=== PATIENT | female | born 1940 | race American Indian/Alaskan Native ===

== ENCOUNTER 2016-12-01 09:05 | Inpatient (IN) | payer MEDICARE ==
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
[2016-12-01 10:01] LABS: URINE BILIRUBIN NEGATIVE (NEGATIVE); URINE BLOOD NEGATIVE (NEGATIVE); URINE GLUCOSE (UA) NEGATIVE (NEGATIVE); URINE KETONE NEGATIVE (NEGATIVE); URINE LEUKOCYTE ESTERASE SMALL Leu/uL (NEGATIVE); URINE PROTEIN NEGATIVE mg/dL (<30 mg/dL); URINE UROBILINOGEN 0.2 E.U./dL (<1 E.U./dL)
[2016-12-01 10:02] LABS: URINE APPEARANCE CLEAR (CLEAR); URINE COLOR YELLOW (YELLOW)
[2016-12-01 10:11] LABS: HEMATOCRIT 35.7 % (36.0-48.0); MEAN CELL VOLUME 79.7 fL (80.0-105.0); MEAN CORPUSCULAR HEMOGLOBIN 28.1 pg (25.0-35.0); MEAN CORPUSCULAR HGB CONC 35.3 g/dl (31.0-37.0); MEAN PLATELET VOLUME 9.2 fl (7.0-11.0); RED CELL DISTRIBUTION WIDTH 15.4 % (11.5-14.5)
[2016-12-01 10:14] LABS: ALB/GLOB RATIO 1.2 (1.1-1.8); ALKALINE PHOSPHATASE 65 U/L (38-133); ALT/SGPT 25 U/L (7-56); AST/SGOT 42 U/L (15-39); BILIRUBIN,TOTAL 1.3 mg/dL (0.2-1.3); BLOOD UREA NITROGEN 16 mg/dL (7-21); CALCIUM 9.6 mg/dL (8.4-10.5); CARBON DIOXIDE 34 mmol/L (21-33); CHLORIDE 100 mmol/L (98-107); GFR AFRICAN-AMERICAN > 60; GLUCOSE,RANDOM 75 mg/dL (70-110); POTASSIUM 3.6 mmol/L (3.6-5.0); SODIUM 143 mmol/L (132-148); TOTAL PROTEIN 8.6 g/dL (5.8-8.3); URINE BACTERIA FEW (NEG); URINE RBC NEGATIVE /hpf (0-2)
--- NOTE | 2016-12-01 11:02 | RAD ---
HISTORY: screening COMPARISON: No prior. FINDINGS: LUNGS: No active pulmonary disease. PLEURA: No significant pleural effusion identified, no pneumothorax apparent. CARDIOVASCULAR: Normal. OSSEOUS STRUCTURES: No significant abnormalities. VISUALIZED UPPER ABDOMEN: Normal. OTHER FINDINGS: None. IMPRESSION: No active disease.
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
--- NOTE | 2016-12-01 14:09 | CT ---
PROCEDURE: CT HEAD WITHOUT CONTRAST. HISTORY: ams COMPARISON: None available. TECHNIQUE: Axial computed tomography images were obtained through the head/brain without intravenous contrast. Radiation dose: Total exam DLP = 745 mGy-cm. This CT exam was performed using one or more of the following dose reduction techniques: Automated exposure control, adjustment of the mA and/or kV according to patient size, and/or use of iterative reconstruction technique. FINDINGS: HEMORRHAGE: No intracranial hemorrhage. BRAIN: No mass effect or edema. Severe chronic microvascular disease is seen in the periventricular white matter. No acute findings VENTRICLES: Unremarkable. No hydrocephalus. CALVARIUM: Unremarkable. PARANASAL SINUSES: Unremarkable as visualized. No significant inflammatory changes. MASTOID AIR CELLS: Unremarkable as visualized. No inflammatory changes. OTHER FINDINGS: None. IMPRESSION: Severe chronic microvascular disease. No acute findings
--- NOTE | 2016-12-01 15:16 | CARD ---
APPROVED REPORT EKG Measurement Heart [id number] 178P [id number] <Conclusion> Normal sinus rhythm Low voltage QRS Nonspecific ST and T wave abnormality Abnormal ECG
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
[2016-12-01 19:48] VITALS: BMI 20.8
[2016-12-01] MEDS ORDERED: Pneumococcal 23-Valent Vaccine IM ONE (19:48)
[2016-12-02 07:40] LABS: ADD MANUAL DIFF? NO
[2016-12-02 08:12] LABS: BASO # 0.01 K/mm3 (0.0-2.0); BASO % 0.2 % (0.0-3.0); EOS # 0.2 (0.0-0.7); GRAN # 2.85 (1.4-6.5); GRAN % 56.4 % (50.0-68.0); LYMPH # 1.6 (1.2-3.4); LYMPH % 32.1 % (22.0-35.0); MEAN CELL VOLUME 78.8 fL (80.0-105.0); MEAN CORPUSCULAR HEMOGLOBIN 28.1 pg (25.0-35.0); MEAN CORPUSCULAR HGB CONC 35.6 g/dl (31.0-37.0); MONO # 0.4 (0.1-0.6); MONO % 8.3 % (1.0-6.0); PLATELET COUNT 238 10^3/uL (120.0-450.0); RED CELL DISTRIBUTION WIDTH 15.3 % (11.5-14.5); WHITE BLOOD COUNT 5.1 10^3/ul (4.5-11.0)
[2016-12-02 08:18] LABS: ALB/GLOB RATIO 1.2 (1.1-1.8); ALKALINE PHOSPHATASE 60 U/L (38-133); ALT/SGPT 24 U/L (7-56); BILIRUBIN,TOTAL 1.5 mg/dL (0.2-1.3); BLOOD UREA NITROGEN 16 mg/dL (7-21); CARBON DIOXIDE 29 mmol/L (21-33); CHLORIDE 104 mmol/L (95-110); GFR AFRICAN-AMERICAN > 60; GLUCOSE,RANDOM 79 mg/dL (70-110); POTASSIUM 3.9 mmol/L (3.6-5.0); SODIUM 139 mmol/L (132-148); TOTAL PROTEIN 7.2 g/dL (5.8-8.3)
[2016-12-02 08:40] LABS: AST/SGOT 44 U/L (15-39)
[2016-12-02 08:53] LABS: T3 1.05 ng/mL (0.97-1.69); THYROID STIMULATING HORMONE 1.72 mIU/mL (0.46-4.68)
[2016-12-02] MEDS: Sodium Chloride 0.9% 1,000 ML IV SCH ×2 (08:54→17:53)
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
--- NOTE | 2016-12-02 14:43 | CARD ---
APPROVED REPORT EXAM: Two-dimensional and M-mode echocardiogram with Doppler and color Doppler. INDICATION ICD: BRADYCARDIA 2D DIMENSIONS IVSd1.0 (0.7-1.1cm)LVDd3.9 (3.9-5.9cm) PWd1.2 (0.7-1.1cm)LVDs2.4 (2.5-4.0cm) FS (%) 38.0 %LVEF (%)68.8 (>50%) M-Mode DIMENSIONS Left Atrium (MM)3.50 (2.5-4.0cm)Aortic Root2.90 (2.2-3.7cm) Aortic Cusp Exc.1.80 (1.5-2.0cm) Aortic Valve AoV Peak Aqdwqiio617.0cm/sAoV VTI30.3cmAO Peak GR.8mmHg LVOT Peak Hscbsrrr17.5cm/sLVOT VTI21.90cmAO Mean GR.5mmHg AI P 1/2 Aamf726rs Mitral Valve MV E Kuzzfqfb25.7cm/sMV A Cvivwpjz99.9cm/sE/A ratio1.4 TDI Lateral E' Peak V11.60cm/sMedial E' Peak V8.19cm/sE/Lateral E'5.4 E/Medial E'7.7 Tricuspid Valve TR Peak Pvsjoggi255gk/sRAP LCUEIZZX40hdInXL Peak Gr.31mmHg KLDP30jaPu LEFT VENTRICLE The left ventricle is normal size. There is mild concentric left ventricular hypertrophy. The left ventricular function is normal.EF-55-60% There is normal LV segmental wall motion. The left ventricular diastolic function is normal. No left ventricle thrombus noted on this study. There is no ventricular septal defect visualized. There is no left ventricular aneurysm. There is no mass noted in the left ventricle. RIGHT VENTRICLE The right ventricle is normal size. There is normal right ventricular wall thickness. The right ventricular systolic function is normal. ATRIA The left atrium is borderline dilated in Long axis The right atrium is borderline dilated in Long axis The interatrial septum is intact with no evidence for an atrial septal defect. AORTIC VALVE The aortic valve is thickened but opens well. There is mild aortic regurgitation. There is no aortic valvular stenosis. There is no aortic valvular vegetation. MITRAL VALVE The mitral valve is thickened but opens well. Mitral regurgitation is trace. There is no mitral valve stenosis. There is no evidence of mitral valve prolapse. TRICUSPID VALVE The tricuspid valve leaflets are thickened , but open well. There is mild tricuspid regurgitation.RVSP-41 mmof hg. There is no tricuspid valve stenosis. There is no tricuspid valve prolapse or vegetation. PULMONIC VALVE The pulmonary valve is normal in structure. There is trace pulmonic valvular regurgitation. There is no pulmonic valvular stenosis. GREAT VESSELS The aortic root is normal in size. The ascending aorta is normal in size. The pulmonary artery is normal. The IVC is normal in size and collapses >50% with inspiration. PERICARDIAL EFFUSION There is no pleural effusion. There is no pericardial effusion. <Conclusion> The left ventricle is normal size. There is mild concentric left ventricular hypertrophy. The left ventricular function is normal.EF-55-60% There is mild aortic regurgitation. Mitral regurgitation is trace. There is mild tricuspid regurgitation.RVSP-41 mmof hg. There is no pericardial effusion. The IVC is normal in size and collapses >50% with inspiration.
--- NOTE | 2016-12-02 17:13 | CON ---
DATE: 12/02/2016 REASON FOR CONSULTATION: Sinus bradycardia. HISTORY OF PRESENT ILLNESS: The patient is a 76-year-old -[place] female who has history of hypertension and dementia [facility] to [facility] her roommate. The patient is confused and provides no reliable history or appropriate answers to my questions. T he patient was noticed to be bradycardic in the 50s on the monitor. No reported ventricular arrhythm ia. MEDICATIONS: Normal saline 100 mL an hour, Pepcid 40 mg once a day, Haldol 0.25 mg p.o. twice a day, Tylenol 1 tablet q. 4 hours p.r.n. for pain. REVIEW OF SYSTEMS: No reported hypertension. No reported ventricular tachycardia. No reported seiz ure activity. PAST MEDICAL HISTORY: Dementia, hypertension, insomnia. PHYSICAL EXAMINATION: GENERAL: The patient is an elderly female who does not appear to be in any acute distress. VITAL SIGNS: Blood pressure 148/78, heart rate 53, temperature 98.6, respiration 18. HEENT: Normocephalic. NECK: No JVD. CHEST: Clear. HEART: S1, S2 regular. EXTREMITIES: No edema. LABORATORY DATA: CBC: WBC 5.1, hemoglobin 11.4, hematocrit 32, platelet count 238,000. Urine drug screen is negative. SMA-7 is within normal limits. Total bilirubin is borderline elevated at 1.5. TSH level is within normal limits. EKG revealed sinus rhythm at a rate 61. Low voltage QRS complexe s, nonspecific ST and T-wave abnormality. Head CT scan revealed severe chronic microvascular disease . ASSESSMENT: 1. Altered mental status. 2. Period of sinus bradycardia. 3. The patient is euthyroid. 4. Dementia. 5. Rule out underlying sepsis. RECOMMENDATIONS: Continue current normal saline infusion. Continue Haldol, Pepcid, and p.r.n. Tylen ol. Obtain 2 sets of blood cultures. I will review the echocardiographic study performed today. Jin Del Real MD cc: [id number] TT: 12/02/2016 17:12:49 Confirmation # [id number] Dictation # [id number] mn
[2016-12-03 07:50] LABS: ADD MANUAL DIFF? NO
[2016-12-03 07:54] LABS: BASO # 0.03 K/mm3 (0.0-2.0); BASO % 0.5 % (0.0-3.0); EOS # 0.2 (0.0-0.7); EOS % 2.7 % (1.5-5.0); GRAN # 3.36 (1.4-6.5); GRAN % 56.6 % (50.0-68.0); HEMATOCRIT 32.6 % (36.0-48.0); LYMPH # 1.8 (1.2-3.4); LYMPH % 30.4 % (22.0-35.0); MEAN CELL VOLUME 78.6 fL (80.0-105.0); MEAN CORPUSCULAR HEMOGLOBIN 27.2 pg (25.0-35.0); MEAN CORPUSCULAR HGB CONC 34.7 g/dl (31.0-37.0); MEAN PLATELET VOLUME 9.1 fl (7.0-11.0); MONO # 0.6 (0.1-0.6); MONO % 9.8 % (1.0-6.0); PLATELET COUNT 243 10^3/uL (120.0-450.0); RED CELL DISTRIBUTION WIDTH 15.5 % (11.5-14.5); WHITE BLOOD COUNT 5.9 10^3/ul (4.5-11.0)
[2016-12-03 08:15] LABS: ALB/GLOB RATIO 1.1 (1.1-1.8); ALKALINE PHOSPHATASE 61 U/L (38-133); ALT/SGPT 25 U/L (7-56); AST/SGOT 38 U/L (15-39); BILIRUBIN,TOTAL 1.1 mg/dL (0.2-1.3); BLOOD UREA NITROGEN 19 mg/dL (7-21); CARBON DIOXIDE 29 mmol/L (21-33); CHLORIDE 104 mmol/L (98-107); GFR AFRICAN-AMERICAN > 60; GLUCOSE,RANDOM 81 mg/dL (70-110); POTASSIUM 3.9 mmol/L (3.6-5.0); SODIUM 139 mmol/L (132-148); TOTAL PROTEIN 7.4 g/dL (5.8-8.3)
[2016-12-03] MEDS: cefTRIAXone 1 gm 1 GM/100 ML BAG IVPB SCH (10:07)
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
[2016-12-03] MEDS: Sodium Chloride 0.9% 1,000 ML IV SCH (20:13)
[2016-12-04] MEDS: Sodium Chloride 0.9% 1,000 ML IV SCH (05:44)
[2016-12-04 08:15] LABS: ADD MANUAL DIFF? NO
[2016-12-04 08:21] LABS: BASO # 0.02 K/mm3 (0.0-2.0); BASO % 0.4 % (0.0-3.0); EOS # 0.2 (0.0-0.7); EOS % 3.3 % (1.5-5.0); GRAN # 2.86 (1.4-6.5); GRAN % 59.5 % (50.0-68.0); HEMATOCRIT 33.3 % (36.0-48.0); LYMPH # 1.4 (1.2-3.4); LYMPH % 29.5 % (22.0-35.0); MEAN CELL VOLUME 79.5 fL (80.0-105.0); MEAN CORPUSCULAR HEMOGLOBIN 27.9 pg (25.0-35.0); MEAN CORPUSCULAR HGB CONC 35.1 g/dl (31.0-37.0); MEAN PLATELET VOLUME 8.8 fl (7.0-11.0); MONO # 0.4 (0.1-0.6); MONO % 7.3 % (1.0-6.0); PLATELET COUNT 211 10^3/uL (120.0-450.0); RED CELL DISTRIBUTION WIDTH 15.5 % (11.5-14.5); WHITE BLOOD COUNT 4.8 10^3/ul (4.5-11.0)
[2016-12-04 08:40] LABS: ALB/GLOB RATIO 1.1 (1.1-1.8); ALKALINE PHOSPHATASE 53 U/L (38-133); ALT/SGPT 26 U/L (7-56); AST/SGOT 40 U/L (15-39); BILIRUBIN,TOTAL 1.1 mg/dL (0.2-1.3); BLOOD UREA NITROGEN 15 mg/dL (7-21); CALCIUM 8.6 mg/dL (8.4-10.5); CARBON DIOXIDE 28 mmol/L (21-33); CHLORIDE 107 mmol/L (98-107); GFR AFRICAN-AMERICAN > 60; GLUCOSE,RANDOM 77 mg/dL (70-110); POTASSIUM 4.1 mmol/L (3.6-5.0); SODIUM 141 mmol/L (132-148); TOTAL PROTEIN 7.1 g/dL (5.8-8.3)
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
[2016-12-04] MEDS: cefTRIAXone 1 gm 1 GM/100 ML BAG IVPB SCH (11:10)
[2016-12-05 07:14] LABS: ADD MANUAL DIFF? NO
[2016-12-05 07:19] LABS: BASO # 0.02 K/mm3 (0.0-2.0); BASO % 0.4 % (0.0-3.0); EOS # 0.2 (0.0-0.7); EOS % 3.5 % (1.5-5.0); GRAN # 3.29 (1.4-6.5); GRAN % 59.8 % (50.0-68.0); HEMATOCRIT 33.8 % (36.0-48.0); LYMPH # 1.6 (1.2-3.4); LYMPH % 29.7 % (22.0-35.0); MEAN CELL VOLUME 79.2 fL (80.0-105.0); MEAN CORPUSCULAR HEMOGLOBIN 27.2 pg (25.0-35.0); MEAN CORPUSCULAR HGB CONC 34.3 g/dl (31.0-37.0); MEAN PLATELET VOLUME 9.1 fl (7.0-11.0); MONO # 0.4 (0.1-0.6); MONO % 6.6 % (1.0-6.0); PLATELET COUNT 232 10^3/uL (120.0-450.0); RED CELL DISTRIBUTION WIDTH 15.4 % (11.5-14.5); WHITE BLOOD COUNT 5.5 10^3/ul (4.5-11.0)
[2016-12-05 07:51] LABS: ALB/GLOB RATIO 1.1 (1.1-1.8); ALKALINE PHOSPHATASE 67 U/L (38-133); ALT/SGPT 26 U/L (7-56); AST/SGOT 45 U/L (15-39); BILIRUBIN,TOTAL 0.8 mg/dL (0.2-1.3); BLOOD UREA NITROGEN 16 mg/dL (7-21); CALCIUM 8.9 mg/dL (8.4-10.5); CARBON DIOXIDE 30 mmol/L (21-33); CHLORIDE 103 mmol/L (98-107); GFR AFRICAN-AMERICAN > 60; GLUCOSE,RANDOM 81 mg/dL (70-110); SODIUM 140 mmol/L (132-148); TOTAL PROTEIN 7.5 g/dL (5.8-8.3)
[2016-12-05 08:56] VITALS: BP 137/72; PULSE 54; RESP 20; TEMP 98; O2SAT 99
--- NOTE | 2016-12-05 09:46 | CP.PCM.PN ---
Subjective - Date & Time of Evaluation Date of Evaluation: 12/05/16 Objective - Vital Signs/Intake and Output Vital Signs (last 24 hours): Temp Pulse Resp BP Pulse Ox 98 F 54 L 20 137/72 99 12/05/16 08:55 12/05/16 08:55 12/05/16 08:55 12/05/16 08:55 12/05/16 08:55 Intake and Output: 12/05/16 12/05/16 06:59 18:59 Intake Total 480 0 Balance 480 0 - Medications Medications: Current Medications Acetaminophen (Tylenol 325mg Tab) 325 mg PO Q4 PRN PRN Reason: pain Aspirin (Aspirin Chewable) 81 mg PO DAILY [facility] Last Admin: 12/04/16 11:09 Dose: 81 mg Famotidine (Pepcid) 40 mg PO DAILY [facility] Last Admin: 12/04/16 11:10 Dose: 40 mg Haloperidol (Haldol) 0.25 mg PO AMHS BLU PRN Reason: Protocol Last Admin: 12/04/16 22:06 Dose: 0.25 mg Sodium Chloride (Sodium Chloride 0.9%) 1,000 mls @ 100 mls/hr IV .Q10H [facility] Last Admin: 12/04/16 05:44 Dose: 100 mls/hr Ceftriaxone Sodium (Rocephin 1 Gram Ivpb) 1 gm in 100 mls @ 100 mls/hr IVPB DAILY [facility] PRN Reason: Protocol Last Admin: 12/04/16 11:10 Dose: 100 mls/hr Lorazepam (Ativan) 1 mg IVP Q4H PRN; Protocol PRN Reason: Agitation Last Admin: 12/04/16 14:39 Dose: 1 mg - Labs Labs: 12/05/16 06:45 12/05/16 06:45
[2016-12-05] MEDS: cefTRIAXone 1 gm 1 GM/100 ML BAG IVPB SCH (10:08)
[2016-12-05] MEDS ORDERED: Amoxicillin-Clav 875-125 mg Tab PO SCH (10:30)
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
--- NOTE | 2016-12-05 13:13 | PN ---
DATE: 12/05/2016 The patient is still confused and confabulating. She denies any chest pain. PHYSICAL EXAMINATION: VITAL SIGNS: Blood pressure 137/72, heart rate 64, temperature 98, respirations 20. HEENT: Normocephalic. CHEST: Clear. HEART: S1, S2 regular. EXTREMITIES: No edema. LABORATORIES: Hemoglobin and hematocrit 11.6 and 33.8, white count and platelet count are within nor mal limits. Today's SMA-7 is within normal limit. ASSESSMENT: 1. Altered mental status. 2. Periods of sinus bradycardia. 3. Dementia. 4. Hypertension. 5. History of insomnia. RECOMMENDATIONS: Continue current aspirin 81 mg once a day, normal saline infusion at 100 mL an hour . The plan is to transfer the patient to [facility]. No invasive cardiac workup is justi fied at this time. Jin Del Real MD cc: [id number] TT: 12/05/2016 13:12:33 Confirmation # [id number] Dictation # [id number]
== END 2016-12-05 14:07 | DRG 690 ==
LOC: ED 09:05 → ERH 11:59 → 3RSO 13:45
PROVIDERS: ADMIT Internal Medicine; ATTEND Internal Medicine
DX: N39.0 Urinary tract infection, site not specified (principal); F03.91 Unspecified dementia, unspecified severity, with behavioral disturbance; R00.1 Bradycardia, unspecified; R41.0 Disorientation, unspecified; R41.82 Altered mental status, unspecified; I10 Essential (primary) hypertension; Z79.899 Other long term (current) drug therapy; R40.2412 Glasgow coma scale score 13-15, at arrival to emergency department; F41.9 Anxiety disorder, unspecified; G47.00 Insomnia, unspecified; F22 Delusional disorders; Z78.1 Physical restraint status; B95.4 Other streptococcus as the cause of diseases classified elsewhere